=== PATIENT | male | born 1990 | race Caucasian/White ===

== ENCOUNTER 2017-09-14 09:44 | Emergency (ER) | payer OTHER ==
[2017-09-14 09:56] VITALS: BP 143/91
--- NOTE | 2017-09-14 12:40 | ED Physician Documentation ---
PD HPI BACK INJURY - Stated complaint Stated Complaint: BACK PX - History obtained from History obtained from: Patient - History of Present Illness Type of injury: Twist. No: Fall Where injury occurred: Home Timing - onset: How many days ago (few) Timing - duration: Days Timing - details: Abrupt onset (hurt back with just twisting and felt more stiff the following morning.) Quality: Pain, Spasm Improved by: Rest Worsened by: Moving Associated symptoms: No: Fever, Weakness, Numbness, Incontinent of urine Similar symptoms before: Has not had sx before Recently seen: Not recently seen Review of Systems Constitutional: denies: Fever, Chills GI: denies: Abdominal Pain, Nausea, Vomiting, Diarrhea : denies: Dysuria, Frequency, Incontinent Skin: denies: Rash, Lesions Musculoskeletal: reports: Back pain Neurologic: denies: Focal weakness, Numbness PD PAST MEDICAL HISTORY - Past Medical History Past Medical History: No Cardiovascular: None - Past Surgical History Past Surgical History: No - Present Medications Home Medications: Ambulatory Orders Medication Instructions Recorded Confirmed Dexamethasone [Decadron] 4 mg PO DAILY #10 tablet 09/14/17 HYDROcod/ACETAM 5/325 [Bogard 5/325] 1 tab PO Q6H PRN #20 tablet 09/14/17 Methocarbamol [Robaxin] 500 mg PO Q6H PRN #25 tablet 09/14/17 - Allergies Allergies/Adverse Reactions: Allergies Allergy/AdvReac Type Severity Reaction Status Date / Time No Known Drug Allergies Allergy Verified 09/14/17 09:51 - Social History Does the pt smoke?: No Smoking Status: Never smoker - Immunizations Immunizations are current?: Yes PD ED PE NORMAL - Vitals Vital signs reviewed: Yes - General General: Alert and oriented X 3, No acute distress, Well developed/nourished - Abdomen Abdomen: Normal bowel sounds, Soft, Non tender - Derm Derm: Normal color, Warm and dry - Extremities Extremities: No tenderness to palpate, No edema - Neuro Neuro: Alert and oriented X 3, No motor deficit, No sensory deficit, Normal speech, Other (normal patellar reflexes. ) Results - Vitals Vitals: Oxygen O2 Source Room air PD MEDICAL DECISION MAKING - ED course Complexity details: considered differential (muscular sounding lumbar pain without red flags. ), d/w patient Departure - Departure Disposition: Home, Self Care Clinical Impression: Acute myofascial strain of lumbar region Qualifiers: Encounter type: initial encounter Qualified Code(s): S39.012A - Strain of muscle, fascia and tendon of lower back, initial encounter Condition: Stable Record reviewed to determine appropriate education?: Yes Instructions: ED Low Back Pain Injury Follow-Up: [facility] [Provider Group] [facility] [Provider Group] Prescriptions: Dexamethasone [Decadron] 4 mg PO DAILY #10 tablet HYDROcod/ACETAM 5/325 [Bogard 5/325] 1 tab PO Q6H PRN #20 tablet PRN Reason: Pain Methocarbamol [Robaxin] 500 mg PO Q6H PRN #25 tablet PRN Reason: Spasms Comments: Continue heat and gentle stretching and range of motion. Consider physical therapy such as physical therapy, massage, chiropractic. Follow-up with your primary care or with orthopedics regarding further treatments or the addition of physical therapy.Continue ibuprofen 2-3 times a day. Add Decadron steroid anti-inflammatory daily for 7-10 days. Methocarbamol muscle relaxant if needed for stiffness and at Tylenol or hydrocodone if needed for pain. Follow-up within a week or so, call for an appointment. Forms: Activity restrictions Discharge Date/Time: 09/14/17 13:02
== END 2017-09-14 13:02 | disposition home or self-care (01) ==
LOC: ED 09:44
DX: S39.012A Strain of muscle, fascia and tendon of lower back, initial encounter (principal); X50.1XXA Overexertion from prolonged static or awkward postures, initial encounter; Y92.009 Unspecified place in unspecified non-institutional (private) residence as the place of occurrence of the external cause
CPT/HCPCS: 99283

== ENCOUNTER 2018-05-11 09:28 | Emergency (ER) | payer OTHER ==
[2018-05-11 09:44] VITALS: BP 126/63
[2018-05-11] MEDS ORDERED: IBUPROFEN 400 MG TABLET PO STA (10:25)
--- NOTE | 2018-05-11 10:28 | ED Physician Documentation ---
History of Present Illness - Stated complaint Stated Complaint: ANKLE PX - Chief complaint Chief Complaint: Ext Problem - Additonal information Additional information: hx from pt 27 y/o male [facility] [place] twisted ankle on planted foot pain and swelling laterally and ant no other complaints Review of Systems Musculoskeletal: reports: Pain with weight bearing PD PAST MEDICAL HISTORY - Past Medical History Past Medical History: No Cardiovascular: None - Past Surgical History Past Surgical History: No - Present Medications Home Medications: Ambulatory Orders Medication Instructions Recorded Confirmed No Known Home Medications 05/11/18 05/11/18 - Allergies Allergies/Adverse Reactions: Allergies Allergy/AdvReac Type Severity Reaction Status Date / Time No Known Drug Allergies Allergy Verified 05/11/18 09:44 - Social History Does the pt smoke?: No Smoking Status: Never smoker Does the pt drink ETOH?: Yes Does the pt have substance abuse?: No - Immunizations Immunizations are current?: Yes PD ED PE NORMAL - Vitals Vital signs reviewed: Yes - Extremities Extremities: Other (STS lat mall and ant sup to same, no appreciable laxity, no proximal tib fib or knee TTP, no 5th MT or other foot TTP, MSV intact) - Neuro Neuro: Alert and oriented X 3, No motor deficit, No sensory deficit Results - Vitals Vitals: Vital Signs - 24 hr 05/11/18 09:43 Temperature 36.5 C Heart Rate 74 Respiratory 16 Rate Blood Pressure 126/63 O2 Saturation 99 Oxygen O2 Source Room air - Rads (name of study) ankle Radiology: See rad report (STS and small effusion) Departure - Departure Disposition: 01 Home, Self Care Clinical Impression: Ankle sprain Qualifiers: Encounter type: initial encounter Involved ligament of ankle: unspecified ligament Laterality: right Qualified Code(s): S93.401A - Sprain of unspecified ligament of right ankle, initial encounter Condition: Good Instructions: ED Sprain Ankle W X Ray Comments: The xray shows no fracture Recommend an JORDEN wrap, elevation, and ice wrapped in a sock or towel for 20 minutes at a time as needed to decrease pain and swelling Motrin as needed for the pain Crutches for 3 days to minimize weight bearing stress, then as needed. No PT or prolonged standing walking for a week If still painful in two weeks, please see your PMD at [facility] for consideration of further imaging Physical therapy will help the ankle heal better and stronger as well
--- NOTE | 2018-05-11 10:39 | XRAY Report ---
Reason: twisted ankle, pain Procedure Date: 05/11/2018 Accession Number: [id number] / [id number] Procedure: XR - Ankle 3 View RT CPT Code: FULL RESULT: EXAM: RIGHT ANKLE RADIOGRAPHY EXAM DATE: 05/11/2018 10:23 AM. CLINICAL HISTORY: Twisted ankle, pain. COMPARISON: None. TECHNIQUE: 3 views. FINDINGS: Bones: Normal. No fractures or bone lesions. Joints: There is a small tibiotalar joint effusion. The ankle mortise is symmetric. Soft Tissues: Soft tissue thickening seen about the ankle. IMPRESSION: Soft tissue swelling and small joint effusion suggest ligamentous injury. RADIA
== END 2018-05-11 10:55 | disposition home or self-care (01) ==
LOC: ED 09:28
DX: S93.401A Sprain of unspecified ligament of right ankle, initial encounter (principal); X50.1XXA Overexertion from prolonged static or awkward postures, initial encounter
CPT/HCPCS: 73610; 99282; 99283; A9270

== ENCOUNTER 2018-08-03 08:29 | Outpatient (CLI) | payer OTHER ==
--- NOTE | 2018-08-03 12:56 | MRI Report ---
Reason: LOW BACK PAIN Procedure Date: 08/03/2018 Accession Number: [id number] / [id number] Procedure: MRI - Lumbar Spine W/O CPT Code: FULL RESULT: EXAM: MRI LUMBAR SPINE WITHOUT CONTRAST EXAM DATE: 08/03/2018 09:11 AM. CLINICAL HISTORY: Low back pain. COMPARISON: None. TECHNIQUE: Multiplanar, multisequence T1-weighted and fluid-sensitive sequences of the lumbar spine from T12 to S1 without contrast. Other: None. FINDINGS: No suspicious marrow replacement is identified in the lumbar vertebral bodies. No abnormal signal is seen in the conus medullaris. No significant spondylolisthesis is present. Disk space height is preserved throughout the lumbar spine. T12-L5: No posterior disk protrusion. L5-S1: A minimal shallow left-sided disk protrusion is seen. No central canal or foraminal stenosis is present in the lumbar spine. IMPRESSION: 1. Minimal degenerative disk disease towards the left at L5-S1. 2. No central canal or foraminal stenosis. Comment: The following findings are so common in adults without low back pain that while we report their presence, they must be interpreted with caution and in the context of the clinical situation. (Reference Rominak et al, Spine 2001) Prevalence of findings in patients without low back pain: Disk degeneration (any evidence): 92% Disk desiccation/T2 signal loss: 83% Disk height loss: 56% Disk bulge: 64% Disk protrusion: 32% Annular tear/high intensity zone: 38% RADIA
== END 2018-08-03 08:30 | disposition home or self-care (01) ==
LOC: DI 08:29
PROVIDERS: ATTEND General Practice
DX: M51.27 Other intervertebral disc displacement, lumbosacral region (principal); M51.37 Other intervertebral disc degeneration, lumbosacral region
CPT/HCPCS: 72148

== ENCOUNTER 2020-02-10 21:12 | Emergency (ER) | payer OTHER ==
--- NOTE | 2020-02-10 22:30 | ED Physician Documentation ---
PD HPI UPPER EXT INJURY - Stated complaint Stated Complaint: R HAND INJ - Chief complaint Chief Complaint: Ext Problem - History obtained from History obtained from: Patient, Family - History of Present Illness Location: Right, Hand, Finger (thumb) Type of injury: Blunt / blow Where injury occurred: Work Timing - onset: Today Timing - duration: Minutes Timing - details: Abrupt onset, Still present Improved by: Rest, Immobilization Worsened by: Moving, Palpating Associated symptoms: Swelling, Discolored. 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 He states that he saw his thumb dislocated at the metacarpal phalangeal joint he was able to place it back in place and now has bruising and swelling to the area. He is able to move the thumb and a full range of motion. Review of Systems Constitutional: denies: Fever Eyes: denies: Decreased vision Ears: denies: Ear pain Nose: denies: Congestion Throat: denies: Sore throat Skin: denies: Rash Musculoskeletal: reports: Extremity pain, Joint pain. denies: Neck pain, Back pain Neurologic: denies: Generalized weakness, Focal weakness, Numbness PD PAST MEDICAL HISTORY - Past Medical History Past Medical History: No Cardiovascular: None Respiratory: None Neuro: None Endocrine/Autoimmune: None GI: None : None HEENT: None Psych: None Musculoskeletal: None Derm: None - Past Surgical History Past Surgical History: No - Present Medications Home Medications: Ambulatory Orders Medication Instructions Recorded Confirmed No Known Home Medications 05/11/18 05/11/18 - Allergies Allergies/Adverse Reactions: Allergies Allergy/AdvReac Type Severity Reaction Status Date / Time No Known Drug Allergies Allergy Verified 02/10/20 21:38 - Social History Does the pt smoke?: No Smoking Status: Never smoker Does the pt drink ETOH?: Yes Does the pt have substance abuse?: No - Immunizations Immunizations are current?: Yes - POLST Patient has POLST: No PD ED PE NORMAL - Vitals Vital signs reviewed: Yes (Normal) - General General: Alert and oriented X 3, No acute distress, Well developed/nourished - HEENT HEENT: Atraumatic, PERRL, EOMI - Respiratory Respiratory: No respiratory distress - Derm Derm: Normal color, Warm and dry, No rash - Extremities Extremities: No deformity, Other (There is swelling and point tenderness over the palm of the hand over the thenar eminence with some discoloration and over the metacarpal phalangeal joint with similar discoloration. He is able to flex and extend at each joint distal neurovascular components are intact and there is no deformity.) - Neuro Neuro: Alert and oriented X 3, status controller 2-12 intact, No motor deficit, No sensory deficit, Normal speech Eye Opening: Spontaneous Motor: Obeys Commands Verbal: Oriented GCS Score: 15 - Psych Psych: Normal mood, Normal affect Results - Vitals Vitals: Vital Signs - 24 hr 02/10/20 02/10/20 02/10/20 21:36 21:52 22:33 Temperature 36.5 C Heart Rate 55 L Respiratory 17 16 16 Rate Blood Pressure 129/72 O2 Saturation 100 02/10/20 02/10/20 22:50 22:51 Temperature Heart Rate 51 L Respiratory 17 17 Rate Blood Pressure 126/71 O2 Saturation 100 Oxygen O2 Source Room air - Rads (name of study) right hand Radiology: Prelim report reviewed (Impression: 1. No radiographic evidence of acute injury to the right hand.), EMP read indepedently, See rad report Procedures - Splint (location) Right hand Splint applied by: Tech Type of splint: Fiberglass, Thumb spica Other: Patient tolerated well, No complications, Neurovascular intact, Good alignment PD MEDICAL DECISION MAKING - ED course Complexity details: reviewed results, re-evaluated patient, considered differential, d/w patient ED course: 29-year-old male with an injury to the palm of his hand by the right thumb gives a history consistent with dislocation of the metacarpal phalangeal joint. There is no tenderness to the joint now and there is no laxity to the ligaments. x- ray is obtained without evidence of fracture and he is placed into a thumb spica instructed to wear it 2-14 days. Departure - Departure Disposition: 01 Home, Self Care Clinical Impression: Thumb contusion Qualifiers: Encounter type: initial encounter Damage to nail status: without damage Laterality: right Qualified Code(s): S60.011A - Contusion of right thumb without damage to nail, initial encounter Condition: Stable Instructions: ED Contusion Hand Follow-Up: [facility] [Primary Care Provider] - Discharge Date/Time: 02/10/20 23:01
[2020-02-10 22:51] VITALS: BP 126/71
--- NOTE | 2020-02-11 09:23 | XRAY Report ---
PROCEDURE: Hand 3 View RT INDICATIONS: thumb dislocation TECHNIQUE: 3 views of the hand(s) acquired. COMPARISON: None FINDINGS: Bones: In this patient with this given history, scrutiny is given to the thumb. No fractures or disl ocations are seen of the thumb. No acute fractures or dislocations are seen elsewhere. There is remote irregularity with deformity se en of the fifth metacarpal, which is attributed to a remote fracture. No suspicious bony lesions. Soft tissues: No suspicious soft tissue calcifications. IMPRESSION: Normal thumb, without fractures or dislocations. Remote fifth metacarpal fracture. Note: No significant discrepancy from the preliminary report. Reviewed by: Marbin Crouch MD on 02/11/2020 8:22 AM MANOJ Approved by: Marbin Crouch MD on 02/11/2020 8:22 AM MANOJ Station ID: [id number]
== END 2020-02-10 23:01 | disposition home or self-care (01) ==
LOC: ED 21:12
DX: S60.011A Contusion of right thumb without damage to nail, initial encounter (principal); W22.09XA Striking against other stationary object, initial encounter; Y93.89 Activity, other specified; Y92.89 Other specified places as the place of occurrence of the external cause; Y99.0 Civilian activity done for income or pay
CPT/HCPCS: 29125; 99282; 99283

== ENCOUNTER 2020-12-01 22:35 | Emergency (ER) | payer OTHER ==
--- NOTE | 2020-12-02 00:21 | ED Physician Documentation ---
PD HPI OPHTHO - Stated complaint Stated Complaint: R EYE SWOLLEN - Chief complaint Chief Complaint: Heent - History obtained from History obtained from: Patient - History of Present Illness Timing - onset: How many minutes ago (30), Today Timing - duration: Hours (1/2) Timing - details: Abrupt onset, Still present (has improved enroute to ER.) Location: Right Quality / character: Itching, Other (his friend says the white part of the eye "was sticking out/ swollen".) Associated symptoms: Redness, Swelling (of the scleral portion lower and lateral.), Tearing. No: Discharge, Photophobia Contributing factors: Other (has environmental allergies that have been moderate lately.). No: Exposed to conjunctivitis, FB, Wears contacts Similar symptoms before: Has not had sx before Review of Systems Constitutional: denies: Fever, Chills Eyes: reports: Irritation. denies: Photophobia, Discharge Nose: denies: Rhinorrhea / runny nose, Congestion Throat: denies: Sore throat Respiratory: denies: Cough Skin: denies: Rash, Lesions PD PAST MEDICAL HISTORY - Past Medical History Cardiovascular: None Respiratory: None Neuro: None Endocrine/Autoimmune: None GI: None : None HEENT: None Psych: None Musculoskeletal: None Derm: None - Past Surgical History Past Surgical History: No - Present Medications Home Medications: Ambulatory Orders Medication Instructions Recorded Confirmed Ketotifen Fumarate [Alaway] 2 drops EACHEYE Q4H PRN #10 ml 12/02/20 dexAMETHasone [Decadron] 4 mg PO DAILY #5 tablet 12/02/20 - Allergies Allergies/Adverse Reactions: Allergies Allergy/AdvReac Type Severity Reaction Status Date / Time No Known Drug Allergies Allergy Verified 12/01/20 22:39 - Social History Does the pt smoke?: No Smoking Status: Never smoker Does the pt drink ETOH?: Yes Does the pt have substance abuse?: No - Immunizations Immunizations are current?: Yes - POLST Patient has POLST: No PD ED PE NORMAL - Vitals Vital signs reviewed: Yes - General General: Alert and oriented X 3, No acute distress, Well developed/nourished - HEENT HEENT: PERRL, EOMI, Ears normal, Pharynx benign - Neck Neck: Supple, no meningeal sign, No adenopathy PD ED PE EXPANDED - Eyes Eyes: Injected conj/sclera (redness right scleral area with mild edema c/w allergies. No FB noted. Minimal linear 3-4 mm dye uptake 7 oclock position. ) Results - Vitals Vitals: Oxygen O2 Source Room air PD MEDICAL DECISION MAKING - ED course Complexity details: considered differential (has had some general allergy symptoms and now right eye scleral edema/swelling. Appears allergic conjunctivitis. ), d/w patient Departure - Departure Disposition: 01 Home, Self Care Clinical Impression: Conjunctivitis, allergic Qualifiers: Laterality: right Qualified Code(s): H10.11 - Acute atopic conjunctivitis, right eye Condition: Stable Record reviewed to determine appropriate education?: Yes Instructions: ED Allergic Conjunctivitis Prescriptions: Ketotifen Fumarate [Alaway] 2 drops EACHEYE Q4H PRN #10 ml PRN Reason: Allergy Symptoms dexAMETHasone [Decadron] 4 mg PO DAILY #5 tablet Comments: Continue with your antihistamine oral medications for allergies. Add Decadron steroid daily for 5 more days to see if that helps as well. The eye redness and swelling today looks to be an allergic reaction in the eye. There is a very small superficial abrasion that should heal up okay. Use antihistamine eyedrops periodically as needed for swelling and redness. These are called ketotifen is a common one available. Recheck if your eyes not improved over the next few days. Discharge Date/Time: 12/02/20 00:59
[2020-12-02] MEDS ORDERED: CETIRIZINE 10 MG TABLET PO STA (00:39)
[2020-12-02] MEDS ORDERED: CHERRY SYRUP 10 ML UDC PO ONE (00:39)
[2020-12-02] MEDS ORDERED: DEXAMETHASONE 10 MG/ML VIAL PO STA (00:39)
[2020-12-02] MEDS ORDERED: diphenhydrAMINE 25 MG CAPSULE PO STA (00:39)
[2020-12-02 00:59] VITALS: BP 118/63
== END 2020-12-02 00:59 | disposition home or self-care (01) ==
LOC: ED 22:35
DX: H10.11 Acute atopic conjunctivitis, right eye (principal)
CPT/HCPCS: 99282; 99283; A9270

== ENCOUNTER 2021-08-26 08:44 | Emergency (ER) | payer OTHER ==
[2021-08-26 09:13] VITALS: BP 127/74
--- NOTE | 2021-08-26 09:36 | XRAY Report ---
PROCEDURE: Knee 4 View LT INDICATIONS: Trauma TECHNIQUE: 4 views of the left knee(s) were acquired. COMPARISON: None. FINDINGS: Bones: No fractures or dislocations. No suspicious bony lesions. Soft tissues: Mild joint effusion. No suspicious soft tissue calcifications. IMPRESSION: Mild effusion. No visualized acute fracture or dislocation. However, occult injury canno t be excluded. Recommend short interval imaging follow-up in 7-10 days as clinically indicated for ad ditional evaluation. Reviewed by: Kami Jacques MD on 08/26/2021 9:35 AM PDT Approved by: Kami Jacques MD on 08/26/2021 9:35 AM PDT Station ID: [id number]
--- NOTE | 2021-08-26 10:57 | ED Physician Documentation ---
PD HPI LOWER EXT INJURY - Stated complaint Stated Complaint: LT KNEE PX - Chief complaint Chief Complaint: Ext Problem - History obtained from History obtained from: Patient - History of Present Illness PD HPI LOW EXT INJURY LOCATION: Left, Knee Type of injury: Other (he was working on his car, with lying on floor and also kneeling a lot, all day yesterday and into evening. Some pain on knees. felt a pop anterior kneecap area when got up from kneeling. Noted marked increase swelling, redness and tenderness this morning.) Where injury occurred: Home Timing - onset: Last night, Yesterday Timing - details: Gradual onset, Still present Improved by: Rest. No: Ice Worsened by: Moving (extension at the knee hurts a lot.), Palpating Associated symptoms: Swelling, Discolored (redness and warmth infrapatellar area/proximal anterior tibia.). No: Weakness, Numbness Contributing factors: Other (denies history of gout nor rheumatoid.). No: Anticoagulated, Prior ortho surgery Similar symptoms before: Has not had sx before Recently seen: Not recently seen Review of Systems Constitutional: denies: Fever, Chills Nose: denies: Rhinorrhea / runny nose, Congestion Throat: denies: Sore throat Cardiac: denies: Chest pain / pressure Respiratory: denies: Dyspnea, Cough Skin: denies: Abrasion (s), Laceration (s) Neurologic: denies: Focal weakness, Numbness PD PAST MEDICAL HISTORY - Past Medical History Past Medical History: Yes Cardiovascular: None Respiratory: None Neuro: None Endocrine/Autoimmune: None GI: None : None HEENT: None Psych: None Musculoskeletal: Chronic back pain Derm: None - Past Surgical History Past Surgical History: No - Present Medications Home Medications: Ambulatory Orders Medication Instructions Recorded Confirmed Ibuprofen [Motrin] 600 mg PO TID PRN #25 tab 08/26/21 - Allergies Allergies/Adverse Reactions: Allergies Allergy/AdvReac Type Severity Reaction Status Date / Time No Known Drug Allergies Allergy Verified 08/26/21 09:13 - Social History Does the pt smoke?: No Smoking Status: Never smoker Does the pt drink ETOH?: Yes Does the pt have substance abuse?: No - Immunizations Immunizations are current?: Yes - POLST Patient has POLST: No PD ED PE NORMAL - Vitals Vital signs reviewed: Yes - General General: Alert and oriented X 3, No acute distress, Well developed/nourished - Cardiac Cardiac: RRR, No murmur - Respiratory Respiratory: No respiratory distress, Clear bilaterally - Abdomen Abdomen: Soft, Non tender - Derm Derm: Normal color, Warm and dry - Extremities Extremities: Other (left knee anteriorly with redness, warmth, swelling infrapatellar. No skin sores/cuts. No knee effusion per se. Painful extension/straight leg rasiing active. Cruciate and collateral testing without pain/laxity. ) - Neuro Neuro: Alert and oriented X 3, No motor deficit, No sensory deficit, Normal speech Results - Vitals Vitals: Vital Signs - 24 hr 08/26/21 09:10 Temperature 37.2 C Heart Rate 77 Respiratory 16 Rate Blood Pressure 127/74 O2 Saturation 100 Oxygen O2 Source Room air - Rads (name of study) left knee Radiology: Prelim report reviewed (mild effusion. No fractures/acute bony proces s. ), See rad report PD MEDICAL DECISION MAKING - ED course Complexity details: reviewed results, considered differential (seems likely bursitis prepatellar versus tendonitis at patellar tendon insertion. Very tender, red, swelling, also very suspicious for first time gout. Common treatment would be NSAIDs and pain meds, immobile, crutches. ), d/w patient Departure - Departure Disposition: 01 Home, Self Care Clinical Impression: Patellar tendonitis of left knee Patellar tendon strain Qualifiers: Encounter type: initial encounter Laterality: left Qualified Code(s): S86.812A - Strain of other muscle(s) and tendon(s) at lower leg level, left leg, initial encounter Condition: Stable Record reviewed to determine appropriate education?: Yes Instructions: ED Sprain Knee Follow-Up: [facility] [Provider Group] Prescriptions: Ibuprofen [Motrin] 600 mg PO TID PRN #25 tab PRN Reason: Pain Comments: The location of the redness tenderness and warmth are suggestive of patellar tendinitis or bursitis. No skin lesions to suggest a skin infection. Your x- ray appears normal without any bony abnormality. Given the abruptness of the onset, concern would be for some partial tearing of some of the fibers of the patellar tendon. It does not seem to be completely torn. At this point we can treat it with the knee brace when up and around. Crutches for partial to no weightbearing over at least the next 3 to 5 days. Anti- inflammatories of ibuprofen 3 times a day with food. Ice elevate and rest the front of the knee often the next day or 2. Follow-up with your primary or [facility] in about 3 to 5 days to see how well it is improved. If there is concern for partial tearing of the tendon insertion, you may need to continue the restrictions of the knee brace and partial weightbearing for even a 4-week timeframe at least. If the inflammation and pain is quite improved and the next 3 to 5 days, then it may have been just an inflammatory response. Forms: Activity restrictions Discharge Date/Time: 08/26/21 11:55
[2021-08-26] MEDS ORDERED: IBUPROFEN 600 MG TABLET PO STA (11:29)
== END 2021-08-26 11:55 | disposition home or self-care (01) ==
LOC: ED 08:44
DX: S86.812A Strain of other muscle(s) and tendon(s) at lower leg level, left leg, initial encounter (principal); X58.XXXA Exposure to other specified factors, initial encounter
CPT/HCPCS: 73564; 99282; 99283; A9270

== ENCOUNTER 2022-02-15 20:34 | Outpatient (CLI) | payer OTHER | END 2022-02-15 20:35 | disposition home or self-care (01) | LOC: SC 20:34 | PROVIDERS: ATTEND Nurse Practitioner Family | DX: G47.33 Obstructive sleep apnea (adult) (pediatric) (principal) | CPT/HCPCS: 95810 ==

== ENCOUNTER 2022-02-18 12:55 | Outpatient (CLI) | payer OTHER ==
--- NOTE | 2022-02-18 14:03 | SLEEP CARE CONSULTATION ---
Information from patient questionnaire entered by Chely Reyes MA. I have reviewed and concur with the information entered by Chely Reyes MA. This document represents the service I personally performed and the decisions made by , Wendy Chahal ARNP. History of Present Illness Service Date and Time: 02/18/2022 1255 Initial [place] Sleepiness Scale score: 19 (01/31/2022) Current [place] Sleepiness Scale score: 16 Additional HPI information: DEMETRIUS PADRON returns for follow up and results of the recently performed polysomnography. I explained the pathophysiology behind obstructive sleep apnea. We then spent quite a bit of time discussing different treatment options. For mild obstructive sleep apnea, surgery and oral appliance are alternatives to nasal CPAP therapy but in moderate or severe cases, nasal CPAP is the most effective and reliable treatment. Because apnea is primarily in supine position, then positional management therapy could be effective. Methods discussed such as positioning with pillows to prevent supine sleep. I reviewed the impact of weight changes on sleep apnea and strongly recommended losing weight. Patient does not drink alcohol. Patient was cautioned about risks of drowsy driving until sleepiness symptoms resolve. Sleep Study - Results Type of Sleep Study: Polysomnography Prior sleep studies: No Polysomnography/Home Sleep Study results: IMPRESSION: The quality of the study is good. The patient had normal sleep efficiency. The sleep architecture was normal as well. Respiratory monitoring showed mild obstructive sleep apnea- hypopnea (AHI = 5.9) associated with frequent arousals, oxyhemoglobin desaturation and mild hypoxia (gerardo oxygen saturation of 83%). The respiratory events occurred almost exclusively during supine sleep (supine AHI = 9.5; non-supine = 0.64). Snore was moderate to loud in intensity. There was no significant periodic leg movement of sleep. Cardiac rhythm was normal sinus rhythm without significant arrhythmia. No abnormal behavior (parasomnia) observed during the night. Allergies and Home Medications Known drug allergies: No Drug allergies reviewed: Yes Home medication list reviewed: Yes (no changes) Allergy and home medication list: Allergies No Known Drug Allergies Allergy (Verified 08/26/21 09:13) Review of Systems Review of systems same as previous: Yes (no changes) Physical Exam Vital signs obtained and entered by: Guillermo REYES MA Blood Pressure: 111/71 (LEFT) Cuff size: wrist Heart Rate: 58 O2 Saturation: 99 Height: 5 ft 8 in Weight: 179 lb Body Mass Index: 27.2 BMI Classification: Overweight Impression and Plan 1. Obstructive Sleep Apnea-Hypopnea Syndrome, mild, with lowest oxygen saturation of 83%. Obviously this is the cause of the patients symptoms of unrefreshed sleep, and excessive daytime sleepiness. Since patients apnea is primarily in supine position, patient advised to try positional therapy and agreed with plan. He is also advised to lose weight as this will reduce snoring and apnea. An oral appliance can also be used for snoring but often is not covered by insurance. Follow up is scheduled for one month to check effectiveness. * Positional therapy * Attempt to lose weight. * Avoid alcohol consumption near bedtime. * Avoid supine sleep * The patient is again cautioned about driving until sleepiness completely resolves. * Return one month. I will assess response to therapy. Counseling Topics: Sleeping position, Weight loss health impact Visit Type: In Office Time Spent with Patient (minutes): 20 Provider Statement: I spent 100% of the Face to Face Visit with the patient with greater than 50% spent counseling the patient and coordination of care.
[2022-02-18 14:07] VITALS: BP 111/71
== END 2022-02-18 12:56 | disposition home or self-care (01) ==
LOC: SC 12:55
PROVIDERS: ATTEND Nurse Practitioner Family
DX: G47.33 Obstructive sleep apnea (adult) (pediatric) (principal); E66.3 Overweight; Z68.27 Body mass index [BMI] 27.0-27.9, adult
CPT/HCPCS: 99212; 99213

== ENCOUNTER 2022-04-09 13:29 | Outpatient (CLI) | payer OTHER ==
[2022-04-09 13:53] VITALS: BP 122/74
--- NOTE | 2022-04-09 13:53 | SLEEP CARE CONSULTATION ---
Information from patient questionnaire entered by Damian Woodson. I have reviewed and concur with the information entered by Damian Woodson. This document represents the service I personally performed and the decisions made by me, Wendy Chahal ARNP. History of Present Illness Service Date and Time: 04/09/2022 1329 Previous diagnosis: Mild, Obstructive Sleep Apnea-Hypopnea Syndrome AHI: 5.9 (in 2021) Reason for follow up: other (SIX WEEK F/U POSITIONAL ) Prior sleep studies: No Type of Sleep Study: Polysomnography HPI additional information: DEMETRIUS PADRON was diagnosed to have mild, AHI 5.9, obstructive sleep apnea- hypopnea syndrome and returned today for Positional therapy 6 week follow-up. Sleep Study - Results Type of Sleep Study: Polysomnography Prior sleep studies: No CPAP Compliance Data Compliance data discussion: He has been using a shirt with balls sewn in the back and is able to stay off his back nightly. Subjective Initial [place] Sleepiness Scale score: 19 (01/31/2022) Current [place] Sleepiness Scale score: 17 (04/09/2022) Allergies and Home Medications Drug allergies reviewed: Yes (NKDA) Home medication list reviewed: Yes (no changes) Review of Systems Review of systems same as previous: Yes (no changes) Physical Exam Vital signs obtained and entered by: DAMIAN Thomson MA Blood Pressure: 122/74 (LEFT ARM ) Cuff size: regular Heart Rate: 76 O2 Saturation: 99 Height: 5 ft 8 in Weight: 187 lb 6.4 oz Body Mass Index: 28.5 BMI Classification: Overweight Impression and Plan 1. Obstructive Sleep Apnea-Hypopnea Syndrome, mild. Using positional therapy, the patient has better sleep quality and is more rested overall. He was on assignment for last 2 months and sleeping in beds that were not very comfortable. He has had some shoulder pain with side sleeping. He has been having more nightmares since starting positional therapy as well. He has some random times that he is waking up with "panic attacks" and feeling anxious but does not feel he has anxiety issues. He does however feel he needs to give positional therapy more time when he can sleep in his own bed. Patient's apnea severity and rationale for treatment to reduce apnea, improve sleep quality and reduce cardiovascular and cerebrovascular events was reviewed. -Continue positional therapy -Call this office if any problems -Return for follow up in 3 months, or sooner if concerns arise Counseling Topics: Sleeping position Visit Type: In Office Time Spent with Patient (minutes): 20 Provider Statement: I spent 100% of the Face to Face Visit with the patient with greater than 50% spent counseling the patient and coordination of care.
== END 2022-04-09 13:30 | disposition home or self-care (01) ==
LOC: SC 13:29
PROVIDERS: ATTEND Nurse Practitioner Family
DX: G47.33 Obstructive sleep apnea (adult) (pediatric) (principal)
CPT/HCPCS: 99212; 99213

== ENCOUNTER 2022-07-09 12:48 | Outpatient (CLI) | payer OTHER ==
[2022-07-09 13:24] VITALS: BP 128/76
--- NOTE | 2022-07-09 13:24 | SLEEP CARE CONSULTATION ---
Information from patient questionnaire entered by Damian Woodson. I have reviewed and concur with the information entered by Damian Woodson. This document represents the service I personally performed and the decisions made by me, Wendy Chahal ARNP. History of Present Illness Service Date and Time: 07/09/2022 1248 Previous diagnosis: Mild, Obstructive Sleep Apnea-Hypopnea Syndrome AHI: 5.9 (in 2021) Reason for follow up: three month (F/U POSITIONAL THERAPY ) Prior sleep studies: No Type of Sleep Study: Polysomnography HPI additional information: DEMETRIUS PADRON was diagnosed to have mild, AHI 5.9, obstructive sleep apnea- hypopnea syndrome and returned today for Positional therapy three month follow- up. Sleep Study - Results Type of Sleep Study: Polysomnography Prior sleep studies: No CPAP Compliance Data Compliance data discussion: Patient is using a positional shirt to remind him to stay on sides. He will sometimes take the shirt off when asleep for about 1-2 times a week. He feels like he can maintain doing positional therapy. Subjective On therapy, patient: reports: sleeping better, awakening more refreshed (less head grogginess), being more awake and alert during the day, drowsiness while driving (a few times with longer distances) Initial [place] Sleepiness Scale score: 19 (01/31/2022) Current [place] Sleepiness Scale score: 17 (07/09/22) Allergies and Home Medications Drug allergies reviewed: Yes (NKDA) Home medication list reviewed: Yes (Lexapro, Celebrex, Omeprazole) Review of Systems Review of systems same as previous: No (anxiety; acid reflux) Physical Exam Vital signs obtained and entered by: DAMIAN Thomson MA Blood Pressure: 128/76 (LEFT ARM) Cuff size: regular Heart Rate: 69 O2 Saturation: 97 Height: 5 ft 8 in Weight: 185 lb 6.4 oz Body Mass Index: 28.1 BMI Classification: Overweight Impression and Plan 1. Obstructive Sleep Apnea-Hypopnea Syndrome, mild. Using positional therapy, the patient has feel he is seeing some better sleep quality and is more rested overall. He is able to stay on his side with the positional shirt he acquired. He does take it of sometimes but is putting it on every night. He has been put on light duty for his [place] position until December for back issues (L4-5 bulging discs). His [place] initially was 19/24 and has improved to 17/24. He wants to give it a little more time with positional therapy, but if still not getting more improvement of overall sleepiness we may change him to a CPAP. He voiced understanding and agreement with plan. Patient's apnea severity and rationale for treatment to reduce apnea, improve sleep quality and reduce cardiovascular and cerebrovascular events was reviewed. 2. Overweight, unspecified. Patient has lost weight. Currently patients BMI is 28.1. Obesity increases the risk of apnea, CPAP pressure requirements and overall health risks especially cardiovascular and diabetes. Thus patient is advised to continue to lose weight. -Continue positional therapy -Continue to try to lose weight -Call this office if any problems -Return for follow up in 3 months, or sooner if concerns arise Counseling Topics: Sleeping position, Weight loss health impact Visit Type: In Office Time Spent with Patient (minutes): 23 Provider Statement: I spent 100% of the Face to Face Visit with the patient with greater than 50% spent counseling the patient and coordination of care.
== END 2022-07-09 12:49 | disposition home or self-care (01) ==
LOC: SC 12:48
PROVIDERS: ATTEND Nurse Practitioner Family
DX: G47.33 Obstructive sleep apnea (adult) (pediatric) (principal); E66.3 Overweight; Z68.28 Body mass index [BMI] 28.0-28.9, adult
CPT/HCPCS: 99212; 99213

== ENCOUNTER 2022-10-07 09:29 | Outpatient (CLI) | payer OTHER ==
--- NOTE | 2022-10-07 10:00 | Sleep Patient Instructions ---
Sleep Center Visit Summary - Patient Visit Information Reason for Visit: 3 month follow up - Patient Instructions Additional Instructions: Patient is to continue Positional therapy. Patient follow up in 6 months. - Clinic Information Contact: [facility] [address] [place] [address] [email or web address] T: [phone]
--- NOTE | 2022-10-07 10:05 | SLEEP CARE CONSULTATION ---
Information from patient questionnaire entered by Damian Woodson. I have reviewed and concur with the information entered by Damian Woodson. This document represents the service I personally performed and the decisions made by , Wendy Chahal ARNP. History of Present Illness Service Date and Time: 10/07/2022928 Previous diagnosis: Mild, Obstructive Sleep Apnea-Hypopnea Syndrome AHI: 5.9 (in 2021) Reason for follow up: three month (F/U POSTIONAL THERAPY ) Prior sleep studies: No Type of Sleep Study: Polysomnography HPI additional information: DEMETRIUS PADRON was diagnosed to have mild, AHI 5.9, obstructive sleep apnea- hypopnea syndrome and returned today for Positional therapy three month follow- up. Sleep Study - Results Type of Sleep Study: Polysomnography Prior sleep studies: No CPAP Compliance Data Compliance data discussion: He states he is still able to sleep on his sides. It is more uncomfortable sleeping on his back now. He does have issues with low back pain. He is feeling more restless at night, especially when sleeping in his bed. He is most comfortable when sleeping on his couch because of the support on his back. He feels he can still maintain the positional therapy. Subjective On therapy, patient: reports: sleeping better, awakening more refreshed, being more awake and alert during the day, more rested overall. denies: drowsiness while driving Initial [place] Sleepiness Scale score: 19 (01/31/2022) Current [place] Sleepiness Scale score: 19 (10/07/22; shift change for work) Allergies and Home Medications Known drug allergies: No Drug allergies reviewed: Yes Home medication list reviewed: Yes (Flexeril for lower back, dose increased) Allergy and home medication list: Allergies No Known Drug Allergies Allergy (Verified 10/06/22 08:56) Review of Systems Review of systems same as previous: Yes (no changes) Physical Exam Vital signs obtained and entered by: DAMIAN Thomson MA Blood Pressure: 102/66 (LEFT ARM) Cuff size: regular Heart Rate: 70 O2 Saturation: 98 Height: 5 ft 8 in Weight: 186 lb 3.2 oz Body Mass Index: 28.3 BMI Classification: Overweight Impression and Plan 1. Obstructive Sleep Apnea-Hypopnea Syndrome, mild. Using positional therapy, the patient has better sleep quality and is more rested overall. 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 A pamphlet from [facility] Coping with Shift Work was given and explained to patient. He has also been having low back pain issues that affects his ability to sleep in his bed. He has problems with getting comfortable. The best sleeping place is his couch. He feels the positional therapy is helping with his symptoms and he wishes to continue with positional therapy. Patient's apnea severity and rationale for treatment to reduce apnea, improve sleep quality and reduce cardiovascular and cerebrovascular events was reviewed. 2. Overweight, unspecified. Currently patients BMI is 28.3. Obesity increases the risk of apnea and overall health risks especially cardiovascular and diabetes. Thus patient is advised to lose weight. -Continue positional therapy -Attempt to lose weight -Call this office if any problems -Return for follow up in 6 months, or sooner if concerns arise Counseling Topics: Sleeping position, Weight loss health impact Visit Type: In Office Time Spent with Patient (minutes): 20 Provider Statement: I spent 100% of the Face to Face Visit with the patient with greater than 50% spent counseling the patient and coordination of care.
[2022-10-07 10:06] VITALS: BP 102/66
== END 2022-10-07 09:30 | disposition home or self-care (01) ==
LOC: SC 09:29
PROVIDERS: ATTEND Nurse Practitioner Family
DX: G47.33 Obstructive sleep apnea (adult) (pediatric) (principal); E66.3 Overweight; Z68.28 Body mass index [BMI] 28.0-28.9, adult
CPT/HCPCS: 99212